=== PATIENT | male | born 2000 | race Caucasian/White ===

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

== ENCOUNTER 2021-09-23 01:17 | Emergency (ER) | payer BC ==
--- NOTE | 2021-09-23 02:03 | EDM.PDOC ---
ED HPI GENERAL MEDICAL PROBLEM - General Chief Complaint: Laceration Stated Complaint: Needs stiches Time Seen by Provider: 09/23/21 01:25 - History of Present Illness INITIAL COMMENTS - FREE TEXT/NARRATIVE: Pt comes in with Mom with C/O hitting his head on a truck bumper when helping a friend get out of the ditch. He was dizzy for a few minutes, and vomited twice. After that those symptoms were gone. He also cut his scalp on the left mosque area above the hairline. He denies any H/A, dizziness, neck pain. - Related Data Allergies Allergy/AdvReac Type Severity Reaction Status Date / Time No Known Allergies Allergy Verified 06/24/20 19:43 Home Meds: Home Meds Methylphenidate [Ritalin] 5 mg PO DAILY 11/12/17 [History] Past Medical History - Past Health History Medical/Surgical History: Denies Medical/Surgical History HEENT History: Reports: Other (See Below) Other HEENT History: cold and cough symptoms last week fever 99.9 Musculoskeletal History: Reports: Other (See Below) Other Musculoskeletal History: injury to R ankle ( soft tissue grade one sprain)whil playing hockey Neurological History: Reports: Concussion Psychiatric History: Reports: ADHD Other Psychiatric History: just placed on Ritalin - Past Surgical History HEENT Surgical History: Reports: None, Other (See Below) Other HEENT Surgeries/Procedures: split lip requiring sutures Social & Family History - Family History Family Medical History: No Pertinent Family History - Caffeine Use Caffeine Use: Reports: Soda, Tea ED ROS GENERAL - Review of Systems Review Of Systems: Comprehensive ROS is negative, except as noted in HPI. Skin: Reports: Other (laceration to scalp.) ED EXAM, SKIN/RASH Exam: See Below General Appearance: Other Eye Exam: Bilateral Eye: EOMI, PERRL Head: Other (He has a transverse laceration to the scalp willis 4 cm long. It is gaping. No active bleeding but he has dried blood on his head and clothes.) ED SKIN PROCEDURES - Laceration/Wound Repair Left Side Head Appearance: Clean, Other (Full thickness laceration.) Anesthetic Type: Local Local Anesthesia - Lidocaine (Xylocaine): 1% with EPI Local Anesthetic Volume: 4cc Skin Prep: Chlorhexidine (Hibiciens), Saline Exploration/Debridement/Repair: Wound Explored Closed with: [place] Lac/Wound length In cm: 4 # of Sutures: 10 Course - Re-Assessments/Exams Free Text/Narrative Re-Assessment/Exam: 09/23/21 02:04 Pt is stable. He can turn his head without any pain. He will be discharged home with Mom. Instructions for mild concussion will be given. Monitor lac for any sign of infection. Tylenol for pain. Off work 1 day, then activity as tolerated. Departure - Departure Time of Disposition: 02:00 Disposition: Home, Self-Care 01 Condition: Good Clinical Impression: Concussion Qualifiers: Encounter type: initial encounter Loss of consciousness presence/duration: without LOC Qualified Code(s): S06.0X0A - Concussion without loss of consciousness, initial encounter Laceration of scalp without complication Qualifiers: Encounter type: initial encounter Qualified Code(s): S01.01XA - Laceration without foreign body of scalp, initial encounter - Discharge Information *PRESCRIPTION DRUG MONITORING PROGRAM REVIEWED*: No *COPY OF PRESCRIPTION DRUG MONITORING REPORT IN PATIENT BOWEN: No Instructions: Head Injury, Adult, Concussion, Adult, Sutures, [place], or Adhesive Wound Closure, [id number] Forms: ED Department Discharge Additional Instructions: [place] out in 10 days, out of work 1 day. Tylenol of Motrin pain
== END 2021-09-23 02:01 | disposition home or self-care (01) ==
LOC: LB.ED 01:17
DX: S01.01XA Laceration without foreign body of scalp, initial encounter (principal); S06.0X0A Concussion without loss of consciousness, initial encounter; Z79.899 Other long term (current) drug therapy; W22.8XXA Striking against or struck by other objects, initial encounter
CPT/HCPCS: 12002; 99283-25

== ENCOUNTER 2021-10-27 15:11 | Emergency (ER) | payer BC ==
--- NOTE | 2021-10-27 16:11 | EDM.PDOC ---
ED HPI GENERAL MEDICAL PROBLEM - General Stated Complaint: SEVERE GROIN PAIN Time Seen by Provider: 10/27/21 15:45 Source of Information: Reports: Patient, RN Notes Reviewed History Limitations: Reports: No Limitations - History of Present Illness INITIAL COMMENTS - FREE TEXT/NARRATIVE: This patient presents to the emergency department for evaluation of left testicular pain. He states he has had some pain in his left testicle on and off for the past couple of days. When he gets the pain it is sharp and he has some nausea with that. Today he was out snowmobiling and was pain-free when he left but had a sudden onset of acute pain again after he returned home. He states he had some nausea and vomiting with this pain episode as well and that his left testicle is a little red and swollen today. He has not had a fever with this. He denies dysuria, penile discharge, CVA tenderness, other concerns or complaints. - Related Data Allergies Allergy/AdvReac Type Severity Reaction Status Date / Time No Known Allergies Allergy Verified 10/27/21 15:59 Home Meds: Home Meds NK [No Known Home Meds] 10/27/21 [History] Past Medical History - Past Health History Medical/Surgical History: Denies Medical/Surgical History HEENT History: Reports: None Other HEENT History: cold and cough symptoms last week fever 99.9 Cardiovascular History: Reports: None Respiratory History: Reports: None Gastrointestinal History: Reports: None Genitourinary History: Reports: None Musculoskeletal History: Reports: Other (See Below) Other Musculoskeletal History: injury to R ankle ( soft tissue grade one sprain)whil playing hockey Neurological History: Reports: Concussion Psychiatric History: Reports: ADHD Other Psychiatric History: just placed on Ritalin Endocrine/Metabolic History: Reports: None Hematologic History: Reports: None Immunologic History: Reports: None Oncologic (Cancer) History: Reports: None Dermatologic History: Reports: None - Past Surgical History Head Surgeries/Procedures: Reports: None HEENT Surgical History: Reports: None, Other (See Below) Other HEENT Surgeries/Procedures: split lip requiring sutures Cardiovascular Surgical History: Reports: None Respiratory Surgical History: Reports: None GI Surgical History: Reports: None Male Surgical History: Reports: None Endocrine Surgical History: Reports: None Neurological Surgical History: Reports: None Musculoskeletal Surgical History: Reports: None Oncologic Surgical History: Reports: None Dermatological Surgical History: Reports: None Social & Family History - Family History Family Medical History: No Pertinent Family History - Caffeine Use Caffeine Use: Reports: Soda, Tea ED ROS GENERAL - Review of Systems Review Of Systems: Comprehensive ROS is negative, except as noted in HPI. ED EXAM, RENAL/ - Physical Exam Exam: See Below Exam Limited By: No Limitations General Appearance: Alert, No Apparent Distress Eye Exam: Bilateral Eye: PERRL Ears: Normal External Exam Nose: Normal Inspection Head: Atraumatic, Normocephalic Neck: Normal Inspection, Supple, Full Range of Motion Respiratory/Chest: No Respiratory Distress, Normal Breath Sounds, No Accessory Muscle Use (Male) Exam: No Hernia, Scrotal Swelling, Scrotum Tenderness (R) (Right only), Testicular Tenderness (R), Other (Mild erythema of right scrotum). No: Testicular Mass, Urethral Discharge Neurological: Alert, Oriented Psychiatric: Normal Affect Skin Exam: Warm, Dry, Intact Course - Orders/Labs/Meds Orders: Active Orders 24 hr Category Date Time Status CHLAMYDIA/GC AMPLIFICATION Stat Lab 10/27/21 15:45 Ordered Labs: Laboratory Tests 10/27/21 Range/Units 15:36 Urine Color Yellow Urine Appearance Clear (CLEAR) Urine pH 7.5 (5.0-8.0) Ur Specific [place] 1.020 (1.003-1.030) Urine Protein Negative (NEGATIVE) mg/dL Urine Glucose (UA) Negative (NEGATIVE) mg/dL Urine Ketones Negative (NEGATIVE) mg/dL Urine Occult Blood Negative (NEGATIVE) Urine Nitrite Negative (NEGATIVE) Urine Bilirubin Negative (NEGATIVE) Urine Urobilinogen 0.2 (0.2-1.0) E.U./dL Ur Leukocyte Esterase Negative (NEGATIVE) - Re-Assessments/Exams Free Text/Narrative Re-Assessment/Exam: 10/27/21 16:09 This patient presents to the emergency department for evaluation of left testicular pain. History and clinical findings are concerning for testicular torsion in a young male. Because ultrasound is unavailable in this facility I contacted [facility] [place] and spoke with their provider in the ER, Dr. Meredith. He did agree to accept this patient in transfer and have him evaluated by ultrasound. A urinalysis and urine chlamydia and gonorrhea were obtained and are pending at this time. Patient will go by private car in the care of his mother. They were informed to go directly there, not stopping for food or any other oral intake should he require surgery on arrival. Parent and patient understood instructions, their questions were answered. The patient was stable at the time of discharge. Departure - Departure Time of Disposition: 16:10 Disposition: Home, Self-Care 01 Condition: Fair Clinical Impression: Testicular pain, left - Discharge Information Instructions: Scrotal Swelling Referrals: PCP,None [Primary Care Provider] - Forms: ED Department Discharge Additional Instructions: Follow up today in [place] for Ultra sound of L testicle to rule out testicular torsion - My Orders Last 24 Hours: My Active Orders 10/27/21 15:45 CHLAMYDIA/GC AMPLIFICATION Stat - Assessment/Plan Last 24 Hours: My Active Orders 10/27/21 15:45 CHLAMYDIA/GC AMPLIFICATION Stat
[2021-11-01 02:07] LABS: CHLAMYDIA TRACHOMATIS, NAA Negative (Negative); NEISSERIA GONORRHOEAE, NAA Negative (Negative)
== END 2021-10-27 16:16 | disposition other institution (70) ==
LOC: LB.ED 15:11
DX: N50.812 Left testicular pain (principal)
CPT/HCPCS: 81003; 87491; 87591; 99284